=== PATIENT | male | born 1990 | race Caucasian/White ===

== ENCOUNTER 2023-06-10 04:47 | Emergency (ER) | payer SELFPAY ==
[~2023-06-10] VITALS: Ht 160 cm; Wt 69.9 kg
[2023-06-10 05:00] VITALS: TEMP 99.4; O2SAT 100
[2023-06-10 05:23] LABS: HEMATOCRIT. 39.5 % (42.0-52.0); HEMOGLOBIN. 13.4 g/dL (14.0-18.0); MEAN CORPUSCULAR HEMOGLOBIN 30.7 pg (28.0-32.0); MEAN CORPUSCULAR HGB CONC 33.9 g/dL (31.0-37.0); MEAN CORPUSCULAR VOLUME 90.7 fL (80.0-94.0); MEAN PLATELET VOLUME 8.7 fl (7.4-10.4); PLATELET 207 x1000/uL (130-400); RED BLOOD CELL COUNT 4.35 mill/uL (4.7-6.1); RED CELL DISTRIBUTION WIDTH 13.7 % (11.6-14.6); WHITE BLOOD COUNT 7.2 x1000/uL (4.5-11.0)
[2023-06-10 05:34] LABS: CLARITY URINE CLEAR (CLEAR); COLOR URINE YELLOW (YELLOW); GLUCOSE URINE NEGATIVE (NEGATIVE); KETONES URINE NEGATIVE (NEGATIVE); LEUKOCYTE ESTERASE URINE NEGATIVE (NEGATIVE); NITRITE URINE NEGATIVE (NEGATIVE); OCCULT BLOOD URINE NEGATIVE (NEGATIVE); PH URINE 5.5 (4.5-8.0); PROTEIN URINE TRACE (NEGATIVE); SPECIFIC GRAVITY URINE 1.024 (1.005-1.030); UROBILINOGEN URINE 0.2 E.U./dL (0.2-1.0)
[2023-06-10 05:38] LABS: BACTERIA URINE NONE SEEN; SQUAMOUS EPITHELIAL CELL URINE NONE SEEN /lpf (RARE/1+); YEAST URINE NONE SEEN
[2023-06-10 05:38] LABS: CHLORIDE 107 mEq/L (98-107); INDEX HEMOLYSI 1 (1-3); INDEX ICTERIC 1 (1-4); INDEX LIPEMIC 1 (1-3); POTASSIUM 3.5 mEq/L (3.5-5.1); SODIUM 138 mEq/L (136-145)
[2023-06-10 05:52] LABS: ALANINE AMINOTRANSFERASE 88 IU/L (13-61); ASPARTATE AMINOTRANSFERASE 59 IU/L (15-37); BILIRUBIN TOTAL 0.3 mg/dL (0.1-1.0); CALCIUM 8.3 mg/dL (8.5-10.1); CARBON DIOXIDE 26 mEq/L (21-32); CREATININE 0.9 mg/dL (0.6-1.3); GLUCOSE 103 mg/dL (70-105); PROTEIN TOTAL 7.9 g/dL (6.0-8.3); UREA NITROGEN BLOOD 11 mg/dL (7-21)
[2023-06-10 06:14] LABS: RBC URINE 0-2 /hpf (0-2); WBC URINE 0-2 /hpf (0-2)
[2023-06-10 06:57] LABS: DIFFERENTIAL COMMENT 1
[2023-06-10] MEDS ORDERED: SODIUM CHLORIDE 0.9% 1,000 ML IV ONE (09:00)
[2023-06-10 10:02] LABS: PLATELET ESTIMATE NORMAL
[2023-06-10 13:58] VITALS: BP 123/76; PULSE 70; RESP 17
== END 2023-06-10 14:01 | disposition home or self-care (01) ==
LOC: ER 05:15
DX: R55 Syncope and collapse (principal); R51.9 Headache, unspecified; Z20.822 Contact with and (suspected) exposure to COVID-19
CPT/HCPCS: 80053; 81003; 80320; 85025; 36415; 93005; 96360; 99284; 87426; C9803; Z7610; G0480

== ENCOUNTER 2025-03-02 13:41 | Emergency (ER) | payer SELFPAY ==
[~2025-03-02] VITALS: Ht 167.6 cm; Wt 75.0 kg
[2025-03-02 13:48] VITALS: TEMP 37.1; O2SAT 99
[2025-03-02 13:49] VITALS: O2SAT 99
[2025-03-02 16:58] VITALS: BP 130/72; PULSE 99; RESP 18
[2025-03-02] MEDS: IBUPROFEN 600MG TABLET PO STA (16:58)
[2025-03-02] MEDS ORDERED: HYDR-4001 MT (17:29)
[2025-03-02] MEDS ORDERED: NAPR-681 MT (17:29)
== END 2025-03-02 17:58 | disposition home or self-care (01) ==
LOC: ER 13:41
DX: S62.300A Unspecified fracture of second metacarpal bone, right hand, initial encounter for closed fracture (principal); F12.90 Cannabis use, unspecified, uncomplicated; Z79.899 Other long term (current) drug therapy; V49.40XA Driver injured in collision with unspecified motor vehicles in traffic accident, initial encounter; Y93.89 Activity, other specified; Y92.89 Other specified places as the place of occurrence of the external cause; Y99.8 Other external cause status
CPT/HCPCS: 99284; 73110; 73130; 29125; A6449